=== PATIENT | male | born 1950 | race Caucasian/White ===

== ENCOUNTER 2016-10-07 21:24 | Inpatient (IN) | payer MEDICARE, BC ==
[~2016-10-07 21:24] MED LIST: ATIVAN-DPS2 MG PO; FLAGYL-DPS250 MG PO; KLOR-CON M2020 ME1 PO; MAALOX DPS30 ML PO; PEPCID DPS20 MG PO; SURFAK DPS240 MG PO; TYLENOL DP650 MG/20. PO; TYLENOL DPS325 MG PO
[2016-10-12] MEDS ORDERED: FLOMAX DPS0.4 MG PO (17:46)
[2016-10-12] MEDS ORDERED: ZOLOFT DPS50 MG PO (17:47)
[2016-10-12] MEDS ORDERED: THERA1 EACH PO (17:47)
[2016-10-12] MEDS ORDERED: CULTURELLE1 CAP PO (17:47)
[2016-10-12] MEDS ORDERED: MAALOX DPS30 ML PO (17:49)
[2016-10-12] MEDS ORDERED: VANCOCIN125 MG PO (17:49)
[2016-10-12] MEDS ORDERED: TYLENOL DPS325 MG PO (17:49)
[2016-12-23] MEDS ORDERED: DIFICID200 MG PO (11:17)
[2016-12-23] MEDS ORDERED: BENADRYL-DPS25 MG PO (11:17)
== END 2016-10-11 13:50 | disposition home health service (06) | DRG 372 ==
DX: A04.7 Enterocolitis due to Clostridium difficile (principal); N39.0 Urinary tract infection, site not specified; E83.42 Hypomagnesemia; I48.91 Unspecified atrial fibrillation; I10 Essential (primary) hypertension; E86.0 Dehydration; F10.21 Alcohol dependence, in remission; E87.6 Hypokalemia

== ENCOUNTER 2016-12-16 17:48 | Inpatient (IN) | payer MEDICARE, BC ==
[~2016-12-16] VITALS: Ht 182.9 cm; Wt 69.9 kg
[~2016-12-16 17:48] MED LIST changes: +CULTURELLE1 CAP PO; +FLOMAX DPS0.4 MG PO; +THERA1 EACH PO; +VANCOCIN125 MG PO; +ZOLOFT DPS50 MG PO
--- NOTE | 2016-12-17 01:33 | ER ---
ADMIT: 12/16/2016 RM/LOC: 417 [facility] MR#: [id number] [address] [address] MAIRA ASCENCIO [address] [place] [address] Emergency Room Report SEX: M AGE: 66 : 1950 DATE: 12/16/2016 HISTORY OF PRESENT ILLNESS: Please refer to Dr. Hernández's T-sheet for complete H and P. Briefly, follow him up this patient of results. He came in for diarrhea started yesterday and now high fever. He has had a complex history recently. He has had 2 episodes of C. diff where he has been admitted. His temperature spiked again today at 104.3. He feels like he is having pain in his back, and he is having the diarrhea very similar. Again, he is not currently on antibiotics, and he has some sensitivities to multiple antibiotics. Last time they get oral vancomycin. The workup was done by Dr. Hernández. They did a sepsis pathway. CBC was normal except hemoglobin 13.6, platelets 146, his lactate was 2.5, procalcitonin was 1.08. Cardiac enzymes negative. Chemistries normal except CO2 of 20, glucose 129, magnesium 1.6. His INR was 1.2. He was given Tylenol here in the Emergency Department. A liter of normal saline bolus. We started him on p.o. vancomycin. We are still pending a stool study. I talked to Dr. José Greene, who is on-call for [facility] [place], who will admit to the hospital. ASSESSMENT: 1. Infectious diarrhea. 2. Fever. 3. Dehydration. PLAN: Admit to the hospital under the care of Dr. Greene. Ren Gonzalez MD/ jamila JOB #: [id number] CC: Burke Davila MD, Attending Physician Burke Davila MD, Family Physician
--- NOTE | 2016-12-18 09:51 | CO ---
ADMIT: 12/16/2016 RM/LOC: 313 [facility] MR#: [id number] [address] [address] MAIRA ASCENCIO [address] [place] [address] Consultation SEX: M AGE: 66 : 1950 DATE OF CONSULTATION: 12/17/2016 ATTENDING PHYSICIAN: Burke Davila CONSULTING PHYSICIAN: Wu Judd MD ADDENDUM: Mr. Ascencio was seen in consultation for his Clostridium difficile colitis with possible cecal abscess by CT. I have reviewed his CT scan, laboratory studies, Wicho Osman's note and examined him independently. I am in agreement with Wicho's assessment and plan and documentation. We will plan for repeat CT scan tomorrow with IV contrast in particular to further delineate the area and also assess for any worsening of that. He is currently on appropriate antibiotic therapy. We will provide additional surgical recommendation pending that followup CAT scan. uW Judd MD/ jamila JOB #: [id number] CC: Burke Davila, Attending Physician Burke Davila, Family Physician
--- NOTE | 2016-12-22 08:13 | CO ---
ADMIT: 12/16/2016 RM/LOC: 306 [facility] MR#: [id number] [address] [address] SUKHDEV ASCENCIO [address] [place] [address] Consultation SEX: M AGE: 66 : 1950 DATE OF CONSULTATION: 12/17/2016 ATTENDING PHYSICIAN: Burke Davila CONSULTING PHYSICIAN: Wu Judd MD REASON FOR CONSULTATION: Questionable abscess found on CT scan. HISTORY OF PRESENT ILLNESS: Sukhdev is a very pleasant 66-year-old male with past medical history of recurrent C. diff colitis, who endorses a two day duration of loose stools and fevers. He says the stools have been dark but not have been black or bloody. His fevers have been going on and off for the last couple weeks and they are fevers with chills. He denies any pain, nausea, vomiting, and constipation. PAST MEDICAL HISTORY: Significant for atrial fibrillation, BPH. PAST SURGICAL HISTORY: No prior abdominal surgeries. ALLERGIES: ORAL FLAGYL. MEDICATIONS: Well documented in chart. FAMILY HISTORY: Noncontributory. SOCIAL HISTORY: The patient drinks a bottle of whiskey a week, but denies any tobacco or illicit drug use. REVIEW OF SYSTEMS: CONSTITUTIONAL: The patient has had on and off chills and fevers for the last several weeks. The rest of comprehensive 10-point review of systems was performed and all other systems are negative. PHYSICAL EXAMINATION: GENERAL: The patient is in no acute distress. He is alert and oriented. HEENT: Head is normocephalic and atraumatic. EOMS are intact. Conjunctivae free of icterus, erythema, or pallor. Pinnae, free of deformities. Nose, midline. No tracheal deviation. NECK: Supple. SKIN: Negative for jaundice, clubbing, edema, pallor, or cyanosis. LUNGS: Normal respiratory effort. HEART: Tachycardic. Irregularly irregular rhythm consistent with atrial fibrillation. ABDOMEN: Soft, nondistended, and nontender. NEURO: Grossly intact. LABORATORY DATA: White blood cell count 11.6. DIAGNOSTIC IMAGING: CT of abdomen and pelvis revealed a questionable abscess or pocket of fluid at the cecum. ADMIT: 12/16/2016 RM/LOC: 306 [facility] MR#: [id number] [address] [address] SUKHDEV ASCENCIO [address] [place] [address] Consultation SEX: M AGE: 66 : 1950 ASSESSMENT: 1. Clostridium difficile colitis. 2. Questionable cecal abscess. PLAN: The initial imaging study was performed without contrast, so we will repeat CAT scan of the abdomen tomorrow with IV contrast to get a better look. In the meantime, we agree with IV antibiotic therapy and conservative measures. This plan was discussed with the patient to which he is in agreement of this plan, had all questions answered and would like to proceed. We will see what the stay shows tomorrow. Thanks for the consultation of this patient. MARIAN Ernandez / Wu Judd MD / jamila JOB #: [id number] CC: Burke Davila, Attending Physician Burke Davila, Family Physician
[2016-12-23] MEDS ORDERED: DIFICID200 MG PO (11:17)
[2016-12-23] MEDS ORDERED: BENADRYL-DPS25 MG PO (11:17)
--- NOTE | 2016-12-24 11:41 | CO ---
ADMIT: 12/16/2016 RM/LOC: 306 [facility] MR#: [id number] [address] [address] MAIRA ASCENCIO [address] [place] [address] Consultation SEX: M AGE: 66 : 1950 DATE OF CONSULTATION: 12/17/2016 ATTENDING PHYSICIAN: Burke Davila CONSULTING PHYSICIAN: Shonda Palmer MD REASON FOR CONSULT: Sepsis. HISTORY OF PRESENT ILLNESS: Mr. Ascencio is a 66-year-old man who presented to the ER yesterday with complain of fever and profuse diarrhea. He has been having recurrent episodes of Clostridium difficile colitis since August and per the patient, he just finished oral vancomycin taper. He is allergic to metronidazole which causes severe rash. He has been asymptomatic for the last 5 weeks and since yesterday, he started having 3-4 loose bowel movements and after arrival, almost 8-10 loose bowel movements. He also had fever of 102.9. He denies taking any antibiotics within last few weeks. He denies recent travel or eating anything out of ordinary. He had enteric pathogen panel of the stool which was negative. He denies any nausea, vomiting, or any dysuria. He also complains of some right lower quadrant pain. PAST MEDICAL HISTORY: Paroxysmal atrial fibrillation, recurrent Clostridium difficile colitis, benign prostatic hypertrophy, and history of alcohol dependence. ALLERGIES: TO FLAGYL WHICH CAUSES RASH. CURRENT MEDICATIONS: 1. Flomax. 2. Oral vancomycin 125 mg daily. 3. Zoloft 25 mg daily. 4. Potassium chloride. SOCIAL HISTORY: The patient is and lives at home. Denies any smoking or recreational drug use. He is a recovering alcoholic and reports last drink in August. FAMILY HISTORY: Denies any family history of heart disease, diabetes, or cancer in his family. REVIEW OF SYSTEMS: A 10-point review of systems negative except as mentioned in HPI. PHYSICAL EXAMINATION: VITAL SIGNS: Current temperature 102.9, heart rate 123, respirations 18, blood pressure 134/80, and 95% on room air. GENERAL: No acute distress. HEENT. Head, normocephalic and atraumatic. Extraocular movements intact. Oral mucosa dry. LYMPH: No palpable anterior/posterior cervical or supraclavicular lymphadenopathy. ADMIT: 12/16/2016 RM/LOC: 306 [facility] MR#: [id number] [address] [address] MAIRA ASCENCIO [address] [place] [address] Consultation SEX: M AGE: 66 : 1950 CHEST: Decreased breath sounds bilaterally. No wheezes, rales, or rhonchi. CARDIOVASCULAR: S1 and S2 heard. Tachycardia. ABDOMEN: Soft, mildly distended. Nontender to palpation. Active bowel sounds. PSYCH: Normal affect, memory intact. NEUROLOGY: Alert, awake, and oriented x3. EXTREMITIES: No peripheral edema. DATA REVIEW: CBC today is white count of 11.8, hemoglobin 11.4, platelets 120. CMP shows potassium of 3.6, creatinine 1, albumin 2.6, his lactic acid was 2.5 on admission which has normalized now. Abdominal x-ray showed negative bowel gas pattern. Urinalysis is negative. ASSESSMENT AND PLAN: 1. Recurrent Clostridium difficile colitis. 2. Sepsis secondary to #1. 3. Paroxysmal atrial fibrillation. 4. Alcohol dependence. PLAN: I will add on stool C. difficile PCR. He likely has recurrence and now sepsis. Given his third recurrence, I will try fidaxomicin 200 mg twice daily for 10 days. I will increase the vancomycin dose to 125 mg every 6 hours. I will also like to get a CT abdomen and pelvis to rule out any toxic megacolon, however, less likely given his x-ray findings. Thank you for the consult and I will continue to follow the patient. Shonda Palmer MD/ jamila JOB #: [id number] CC: Burke Davila, Attending Physician Burke Davila, Family Physician
--- NOTE | 2016-12-27 21:34 | ER ---
ADMIT: 12/16/2016 RM/LOC: 417 [facility] MR#: [id number] [address] [address] MAIRA ASCENCIO [address] [place] [address] Emergency Room Report SEX: M AGE: 66 : 1950 DATE: 12/16/2016 HISTORY OF PRESENT ILLNESS: A 66-year-old male who comes to the Emergency Department with 2 days worth of vomiting and chills and diffuse diarrhea. He had been diagnosed with C. difficile and treated approximately a month earlier. He just finished his antibiotics approximately 2 weeks ago. He states the complaints he is having currently seem similar to his last bout with C. difficile infection. He has had explosive onset of diarrhea. He is on multiple stools. He complaints of chills and a fever. PAST MEDICAL HISTORY: Significant for atrial fibrillation, alcoholic encephalitis, depression, hypertension, and recent diagnosis of C. difficile with history of vancomycin. PHYSICAL EXAMINATION: GENERAL: Reveals a 66-year-old gentleman who appeared normal but lying contracted. He is alert and oriented with no focal neurologic findings. LUNGS: Clear to auscultation. CARDIOVASCULAR: Tachycardia with no murmurs, rubs, or gallops. ABDOMEN: Increased bowel tones throughout and he is mildly tender throughout. EXTREMITIES: Unremarkable. EMERGENCY DEPARTMENT COURSE: A sepsis protocol was initiated. IV fluids are being given. His EKG is sinus tachycardia. At time of this dictation, his lab is pending save for lactic acid which was 2.5. Signed over to Dr. Gonzalez for labs, likely source recurrent C. difficile. Homero Hernández MD/ jamila JOB #: [id number] CC: Burke Davila MD, Attending Physician Burke Davila MD, Family Physician
--- NOTE | 2017-01-06 06:37 | DS ---
ADMIT: 12/16/2016 RM/LOC: 526 [facility] MR#: [id number] [facility]#: [id number] [address] [address] MAIRA ASCENCIO [address] [place] [address] General Discharge Summary SEX: M AGE: 66 : 1950 ADMISSION DATE: 12/16/2016 DISCHARGE DATE: 12/22/2016 ADMITTING DIAGNOSIS: Sepsis secondary to recurrent Clostridium difficile colitis. DISCHARGE DIAGNOSIS: Sepsis secondary to recurrent Clostridium difficile colitis. SECONDARY DIAGNOSES: 1. Chronic malnutrition. 2. Thrombocytopenia. 3. Lactic acidosis. 4. Hypomagnesemia. 5. Paroxysmal atrial fibrillation. 6. Recent alcohol dependence. 7. Benign prostatic hypertrophy. CONSULTATIONS DURING THIS HOSPITALIZATION: 1. Infectious Disease. 2. Surgery. PROCEDURES: None. HISTORY OF PRESENT ILLNESS: The patient presented to the emergency room reporting 48 hours of recurrent loose stools and a 24-hour history of fever. He was recorded to have a temperature of 104.3 Fahrenheit in the emergency room. He has a past medical history of Clostridium difficile colitis and had completed 2 previous courses of oral vancomycin. He had some right lower quadrant pain radiating to his back at presentation, which he described as moderate in severity. He also endorsed generalized weakness and rigors secondary to fever. HOSPITAL COURSE: Briefly, the patient was not found to have any severe signs of Clostridium difficile such as leukocytosis, acute kidney injury, hypoalbuminemia, or toxic megacolon. He was restarted on oral vancomycin 4 times daily. Enteric pathogen panel of the stool was negative and Clostridium difficile was again positive. Infectious Disease was consulted the next morning and fidaxomicin 200 mg p.o. b.i.d. was added for 10-day course. CTA of the abdomen was completed without contrast and there was concern for possible abscess either in the cecum or adjacent to the cecum. General Surgery was then consulted and a CT scan with IV contrast was completed the next day, only significant for pancolitis without drainable fluid collection and at the previously measured fluid collection was patulous cecum. The patient did have 1 of 2 blood cultures positive for Gram-positive cocci at 48 hours, though this was thought to be a contaminant. When there was possible abscess on the 1st CT scan, he was started on IV vancomycin and Zosyn for empiric antibiotic coverage and that was discontinued with the results of the 2nd CT scan. The patient's procalcitonin peaked at 8.64, but he responded ADMIT: 12/16/2016 RM/LOC: 526 [facility] MR#: [id number] [address] [address] SANGITAJOHN MAIRA [address] [place] [address] General Discharge Summary SEX: M AGE: 66 : 1950 well to treatment and on hospital day #7, the patient was deemed stable to discharge to home. He is to complete an extended taper of oral vancomycin and the remaining 5-day of his 10-day course of fidaxomicin. Fecal transplant was discussed in some depth with the patient and will be considered again as an outpatient after completing this course of antimicrobials. DISCHARGE MEDICATIONS: 1. Culturelle 1 cap p.o. daily. 2. Dificid 200 mg p.o. b.i.d. for 5 more days. 3. Flomax 0.4 mg p.o. at bedtime. 4. Multivitamin 1 tab p.o. daily. 5. Oral vancomycin per the following taper; q.i.d. until 12/27/2016, t.i.d. until 01/04/2017, b.i.d. until 01/12/2017, daily until 01/26/2017, every other day till 02/12/2017, and every 3rd day with the last dose on 02/27/2017. 6. Zoloft 25 mg p.o. daily. 7. Benadryl 25 to 50 mg p.o. q.6 hours p.r.n. pruritus. 8. Tylenol 650 mg p.o. q.4 hours p.r.n. pain. DISCHARGE INSTRUCTIONS: Follow up with Infectious Disease in [address] Davila in 1 to 2 weeks. CONDITION AT DISCHARGE: Stable. DISPOSITION: To home. Kristy Salcedo MD Resident / Burke Davila MD / louisel JOB #: [id number] CC: Burke Davila MD, Attending Physician Burke Davila MD, Family Physician
--- NOTE | 2017-01-13 08:20 | HP ---
ADMIT: 12/16/2016 RM/LOC: 417 [facility] MR#: [id number] [address] [address] MAIRA ASCENCIO [address] [place] [address] History and Physical SEX: M AGE: 66 : 1950 DATE OF SERVICE: CHIEF COMPLAINT: Fever, loose stools. HISTORY OF PRESENT ILLNESS: The patient is a 66-year-old male with past medical history of recurrent Clostridium difficile colitis and paroxysmal atrial fibrillation, who presents with 48 hours of recurrent loose stools and a 24-hour history of fever. He reports he traveled for [facility], then had a loose stool that evening which he attributed to the food he had ingested, however, he continued to have recurrent loose stools over the last 48 hours and then today developed a fever. In the emergency room, the fever was recorded to the 104.3 Fahrenheit. He denies any other symptoms of infection such as cough, shortness of breath, vomiting, dysuria, pain, or any known sick contacts. He does endorse some right lower quadrant pain when asked and he states that, that radiates to his back, but he denies that this pain is severe. His is not at the bedside, but his mentation seems to be clear during this interview. He does endorse generalized weakness and is most bothered by the severe rigors secondary to the fever. PAST MEDICAL HISTORY: 1. Recurrent Clostridium difficile colitis. 2. Paroxysmal atrial fibrillation. 3. Benign prostatic hypertrophy. 4. History of alcohol dependence. MEDICATIONS: 1. Tamsulosin 0.4 mg p.o. daily. 2. Sertraline 25 mg p.o. daily. 3. Culturelle 1 tab p.o. daily. 4. Previously, on oral vancomycin taper, which was then completed for at least a couple weeks. ALLERGIES: ORAL FLAGYL CAUSES A RASH. SOCIAL HISTORY: The patient is and is retired from previously working in the [employer]. He lives in [place]. He is recovering alcoholic with the last drink in August of this year. He denies any other herbs, supplements, or illicit drug use. FAMILY HISTORY: Multiple family members with alcoholism. REVIEW OF SYSTEMS: GENERAL: Generalized weakness and fever measured at 104.3. HEENT: No conjunctivitis, pharyngitis, or rhinorrhea. CHEST: No cough, shortness of breath, or wheezing. HEART: No chest pain, palpitations, or peripheral edema. ABDOMEN: Loose stools with no appreciable blood and [id number] right lower quadrant pain. The patient endorses loss of appetite, but no vomiting. SKIN: Without rashes or lesions. NEURO: No focal neuro deficits, just generalized weakness. PSYCH: Alert and ADMIT: 12/16/2016 RM/LOC: 417 [facility] MR#: [id number] [address] [place] [id number] MAIRA ASCENCIO [facility] [place] [address] History and Physical SEX: M AGE: 66 : 1950 oriented. PHYSICAL EXAMINATION: VITAL SIGNS: Blood pressure 148/82, pulse 132, respirations 24, oxygen saturation 97% on room air, temperature 104.3. GENERAL: The patient is awake, alert, and oriented, in no acute distress, but is slightly agitated secondary to rigors. HEENT: Head is normocephalic and atraumatic. Pupils are equal, round, and reactive to light. Sclerae are nonicteric. Mucous membranes are moist. HEART: Tachycardic with regular rhythm. No appreciable murmurs. LUNGS: Clear to auscultation bilaterally without wheezes, rhonchi, or rales. ABDOMEN: Soft, with bowel sounds present. [id number]-tc-[id number] tenderness to palpation of the right lower quadrant and suprapubic. EXTREMITIES: Without clubbing, cyanosis, or edema. NEURO: Cranial nerves II through XII are intact with no focal deficits. Strength is grossly intact. PSYCH: Normal mood and affect. OBJECTIVE DATA: WBC 6.3, hemoglobin 13.4, platelets 146, creatinine 1.1, lactic acid 2.5, albumin 3.4, magnesium 1.6, procalcitonin 1.08. ASSESSMENT: 1. Fever, tachycardia, and loose stools, likely secondary to recurrent Clostridium difficile colitis. 2. Hypomagnesemia. 3. Mild thrombocytopenia. 4. Paroxysmal atrial fibrillation. 5. History of alcohol dependence. PLAN: We will admit the patient and rehydrate with IV fluids and advance his diet as tolerated. We will restart oral vancomycin at 125 mg four times daily. Thankfully at this time, the patient has no signs of severe Clostridium difficile infection such as leukocytosis, acute kidney injury, hypoalbuminemia, or signs of toxic megacolon. We will continue to monitor for possible complications of the infection. This is the patient's 3rd infection. We will consult Infectious Disease, but we will also discuss the possibility of transfer for fecal transplant. Kristy Salcedo MD Resident / José Greene MD / jamila JOB #: [id number] CC: Burke Davila, Attending Physician Burke Davila, Family Physician
== END 2016-12-22 19:43 | disposition home or self-care (01) | DRG 872 ==
LOC: ER 17:48 → 4PCU 19:30 → 3ICU 19:30 → 5MS 12-21 12:47
PROVIDERS: ADMIT Family Medicine
DX: A41.4 Sepsis due to anaerobes (principal); E44.0 Moderate protein-calorie malnutrition; A04.7 Enterocolitis due to Clostridium difficile; I48.0 Paroxysmal atrial fibrillation; D69.6 Thrombocytopenia, unspecified; E83.42 Hypomagnesemia; I10 Essential (primary) hypertension; F32.9 Major depressive disorder, single episode, unspecified; E86.0 Dehydration; F10.21 Alcohol dependence, in remission; E87.6 Hypokalemia; N40.0 Benign prostatic hyperplasia without lower urinary tract symptoms